=== PATIENT | female | born 2000 | race Two or more races ===

== ENCOUNTER 2022-03-10 20:45 | Inpatient (IN) | payer OTHER ==
[~2022-03-10] VITALS: Ht 152.4 cm; Wt 72.6 kg
== END 2022-03-13 17:22 | disposition home or self-care (01) | DRG 833 ==
LOC: OBS/DEL 20:45 → LDR 03-11 16:20
PROVIDERS: ADMIT Obstetrics & Gynecology Obstetrics; ATTEND Obstetrics & Gynecology Obstetrics
PROC: 4A1HXCZ Monitoring of Products of Conception, Cardiac Rate, External Approach (ICD-10-PCS; principal; 2022-03-11)
PROC: BY4FZZZ Ultrasonography of Third Trimester, Single Fetus (ICD-10-PCS; 2022-03-11)
DX: O16.3 Unspecified maternal hypertension, third trimester (principal); Z3A.34 34 weeks gestation of pregnancy; Z20.822 Contact with and (suspected) exposure to COVID-19

== ENCOUNTER 2022-04-22 08:19 | Inpatient (IN) | payer OTHER ==
[~2022-04-22] VITALS: Ht 160 cm; Wt 3.2 kg
[2022-04-22] MEDS ORDERED: VISTARIL50 MG PO (09:20)
[2022-04-22] MEDS ORDERED: VITAMIN B-150 MG PO (09:20)
== END 2022-04-26 12:31 | disposition home or self-care (01) | DRG 788 ==
LOC: LDR 08:19 → OB/GYN 04-23 19:30
PROVIDERS: ADMIT Obstetrics & Gynecology Obstetrics; ATTEND Obstetrics & Gynecology Obstetrics
PROC: 3E0P7VZ Introduction of Hormone into Female Reproductive, Via Natural or Artificial Opening (ICD-10-PCS; 2022-04-22)
PROC: 4A1HXCZ Monitoring of Products of Conception, Cardiac Rate, External Approach (ICD-10-PCS; 2022-04-22)
PROC: 3E033VJ Introduction of Other Hormone into Peripheral Vein, Percutaneous Approach (ICD-10-PCS; 2022-04-23)
PROC: 10D00Z1 Extraction of Products of Conception, Low, Open Approach (ICD-10-PCS; principal; 2022-04-23 20:45)
DX: O61.0 Failed medical induction of labor (principal); O99.820 Streptococcus B carrier state complicating pregnancy; Z3A.40 40 weeks gestation of pregnancy; Z37.0 Single live birth; Z20.822 Contact with and (suspected) exposure to COVID-19